=== PATIENT | male | born 1995 | race Caucasian/White ===

== ENCOUNTER 2020-05-28 19:08 | Emergency (ER) | payer BC ==
[2020-05-28 19:19] VITALS: BP 125/79; PULSE 97; RESP 18; TEMP 98
--- NOTE | 2020-05-28 19:41 | ED ---
Extremity Problem HPI - General Source: patient Mode of arrival: ambulatory Limitations: no limitations <María Elena Griggs - Last Filed: 05/29/20 02:10> <Yamilet Brady - Last Filed: 06/04/20 23:50> - General Chief complaint: Extremity Problem,Nontraumatic Stated complaint: L Knee Pain Time Seen by Provider: 05/28/20 19:20 - History of Present Illness Initial comments: 25-year-old male patient presents to the emergency department today for evaluation of an area of swelling to the left knee. Patient states that he was on his knees at home doing work last evening. States he started to have some mild swelling to the left knee last night. States when he woke this morning he had a large area of swelling to the anterior knee. States he has had bursitis in the past and feels this is the same. Denies any fever or chills. Denies any redness over the area. Patient states he has been applying pressure and applying ice without relief. Denies any other injuries or concerns. Patient denies any headache, neck pain, back pain, chest pain, shortness of breath, dizziness, weakness, abdominal pain, nausea, vomiting, or difficulties with bowel movements or urination. (María Elena Griggs) - Related Data Allergies Allergy/AdvReac Type Severity Reaction Status Date / Time No Known Allergies Allergy Verified 05/28/20 19:19 Review of Systems ROS Other: All systems not noted in ROS Statement are negative. <María Elena Griggs - Last Filed: 05/29/20 02:10> ROS Other: All systems not noted in ROS Statement are negative. <Yamilet Brady - Last Filed: 06/04/20 23:50> ROS Statement: Those systems with pertinent positive or pertinent negative responses have been documented in the HPI. Past Medical History Past Medical History: No Reported History History of Any Multi-Drug Resistant Organisms: None Reported Past Surgical History: No Surgical Hx Reported Past Psychological History: No Psychological Hx Reported Smoking Status: Former smoker Past Alcohol Use History: None Reported Past Drug Use History: Marijuana <María Elena Griggs - Last Filed: 05/29/20 02:10> General Exam Limitations: no limitations General appearance: alert, in no apparent distress, other (This is a well- developed, well-nourished adult male patient in no acute distress. Vital signs upon presentation are temperature 98.0F, pulse 97, respirations 18, blood pressure 125/79, pulse ox 98% on room air.) Respiratory exam: Present: normal lung sounds bilaterally. Absent: respiratory distress, wheezes, rales, rhonchi, stridor Cardiovascular Exam: Present: regular rate, normal rhythm, normal heart sounds. Absent: systolic murmur, diastolic murmur, rubs, gallop, clicks Extremities exam: Present: full ROM, normal capillary refill, other (There is a fluctuant area of localized swelling anterior to the left knee. There is no overlying erythema. Area is non tender. Left leg is otherwise pink, warm, dry. Cap refills less than 3 seconds. Pedal pulses 2+ and equal bilaterally). A bsent: normal inspection, tenderness, pedal edema, joint swelling, calf tenderness Neurological exam: Present: alert, oriented X3, CN II-XII intact Psychiatric exam: Present: normal affect, normal mood Skin exam: Present: warm, dry, intact, normal color. Absent: rash <María Elena Griggs - Last Filed: 05/29/20 02:10> Course Vital Signs 05/28/20 19:15 Temperature 98.0 F Pulse Rate 97 Respiratory 18 Rate Blood Pressure 125/79 O2 Sat by Pulse 98 Oximetry Procedures - Joint Aspiration/Injection Consent Obtained: verbal consent Indications: to relieve pressure/pain Side of Body: left Joint Aspirated: knee Ultrasound Guidance: No Skin Prep: Povidone-Iodine1% Needle Size Used: 18G Syringe Size Used: 20cc Fluid Obtained: bloody Total Fluid Obtained (mls): 5 Patient Tolerated Procedure: well, no complications Complications: none <María Elena Griggs - Last Filed: 05/29/20 02:10> - Joint Aspiration/Injection Additional Comments: Performed to drain prepatellar bursitis. (María Elena Griggs) Medical Decision Making <María Elena Griggs - Last Filed: 05/29/20 02:10> <Yamilet Brady - Last Filed: 06/04/20 23:50> - Medical Decision Making 25-year-old male patient presented to the emergency department today for evaluation of left knee swelling. Physical examination did reveal an area of localized swelling over the prepatellar region. This is consistent with prepatellar bursitis of the left knee. There is no overlying erythema. Did attempt to drain the area did get approximately 5 mL of bloody drainage back. A ce wrap was applied with pressure over the area. He'll be discharged to follow- up with insurance law specialist for further evaluation as soon as possible. Return parameters were discussed in detail. He verbalizes understanding and agrees with this plan. (María Elena Griggs) I was available for consultation in the emergency department. The history and physical exam were done by the midlevel provider. I was consulted for this patients care. I reviewed the case with the midlevel provider and based on their presentation of the patient, I agree with the assessment, medical decision making and plan of care as documented. Chart was dictated using [employer] dictation software. Attempts were made to correct any dictation errors however some typographical errors may persist. Patient was seen during a national state of emergency due to the Covid-19 pandemic. (Yamilet Brady) Disposition Is patient prescribed a controlled substance at d/c from ED?: No Time of Disposition: 19:41 <María Elena Griggs - Last Filed: 05/29/20 02:10> <Yamilet Brady - Last Filed: 06/04/20 23:50> Clinical Impression: Hemorrhagic prepatellar bursitis of left knee Disposition: HOME SELF-CARE Condition: Good Instructions (If sedation given, give patient instructions): Knee Bursitis (ED) Additional Instructions: Keep compression over the area. Take Tylenol Motrin for pain control. Apply ice as needed. Follow-up with orthopedics for further evaluation as soon as possible. Return to the emergency department immediately for any new, worsening, or concerning symptoms. Referrals: Karen To DO [Primary Care Provider] - 1-2 days Boo Leong MD [Medical Doctor] - 1-2 days
== END 2020-05-28 19:49 | disposition home or self-care (01) ==
LOC: EC 19:08
DX: M70.42 Prepatellar bursitis, left knee (principal); Z87.891 Personal history of nicotine dependence
CPT/HCPCS: 20610; 99283